=== PATIENT | female | born 1970 | race Two or more races ===

== ENCOUNTER 2023-08-03 06:55 | Day surgery (SDC) | payer OTHER ==
[2023-08-02 09:09] LABS: HEMOGLOBIN 11.6 g/dL (12.0-15.00); MEAN CELL VOLUME 83.4 fL (80.00-100.00); MEAN CORPUSCULAR HEMOGLOBIN 28.4 pg (27.00-32.0); PLATELET COUNT 235 K/uL (150-450); RED BLOOD COUNT 4.08 M/uL (4.00-6.00); RED CELL DISTRIBUTION WIDTH 16.9 % (11.5-14.5)
[2023-08-02 09:12] LABS: PH,URINE 7.5 (5.0-8.0); URINE APPEARANCE Clear; URINE BILIRRUBIN Negative (NEGATIVE); URINE BLOOD Negative; URINE COLOR Yellow; URINE GLUCOSE Negative (NEGATIVE); URINE LEUKOCYTE Negative; URINE NITRATE Negative; URINE PROTEIN Negative (NEGATIVE); URINE UROBILINOGEN 0.2 E.U./dl
[2023-08-02 09:17] LABS: URINE BACTERIA 74.3 uL (0.0-1933); URINE EPITHELIAL CELLS 9.7 uL (0.0-38.8)
[2023-08-02 09:34] LABS: INR 1.02; PARTIAL THROMBOPLASTIN TIME 26.3 SECONDS (22.0-34.0); PROTHROMBIN TIME 10.7 SECONDS (9.0-11.5)
[2023-08-02 09:40] LABS: ALBUMIN 3.5 gm/dL (3.4-5.0); BILIRUBIN TOTAL 0.47 mg/dL (0.3-1.2); CALCIUM 9.7 mg/dL (8.5-10.1); CREATININE SERUM 0.68 mg/dL (0.55-1.02); GFR 91.59; GLOBULINA 3.3 G/DL (2.4-3.5); POTASSIUM 4.05 mEq/L (3.5-5.1); TOTAL PROTEIN 6.8 gm/dL (6.4-8.2)
[2023-08-02 09:44] LABS: URINE RBC 0.2 uL (0.0-20.8); URINE WBC 1.5 uL (0.0-23.2)
[~2023-08-03 06:55] MED LIST: ALDACTONE25 MG PO; ARMOUR THYROID90 MG PO; SYNTHROID50 MCG PO; [UNRECOGNIZED DRUG - OTHER]
[2023-08-03] MEDS ORDERED: CEFAZOLIN SODIUM 1,000 MG VIAL ONE (12:19)
[2023-08-03] MEDS ORDERED: CEFAZOLIN SODIUM 1,000 MG VIAL IV ONE (13:30)
== END 2023-08-03 17:55 | disposition home or self-care (01) ==
LOC: CIR.AMB 06:55
PROVIDERS: ATTEND Surgery
DX: C50.811 Malignant neoplasm of overlapping sites of right female breast (principal); C77.3 Secondary and unspecified malignant neoplasm of axilla and upper limb lymph nodes; Z91.018 Allergy to other foods